=== PATIENT | female | born 1990 | race Two or more races ===

== ENCOUNTER 2018-10-15 18:23 | Outpatient (CLI) | payer OTHER ==
[2018-10-15 19:06] LABS: ADD MAN DIFF? NO
[2018-10-15 19:09] LABS: BASOPHILS % 0.3 % (0.0-2.0); EOSINOPHILS % 0.5 % (0.0-7.0); HEMOGLOBIN 10.4 g/dl (12.0-16.0); LYMPHOCYTES # 1.5 10^3/ul (0.8-2.9); LYMPHOCYTES % 18.9 % (15.0-51.0); MEAN CORPUSCULAR HEMOGLOBIN 31.3 pg (29.0-33.0); MEAN CORPUSCULAR HGB CONC 33.5 g/dl (32.0-37.0); MEAN CORPUSCULAR VOLUME 93.4 fl (82.0-101.0); MEAN PLATELET VOLUME 12.7 fl (7.4-10.4); MONOCYTE # 0.6 10^3/ul (0.3-0.9); MONOCYTES % 6.9 % (0.0-11.0); NEUTROPHIL # 5.8 10^3/ul (1.6-7.5); NEUTROPHILS % 72.9 % (39.0-77.0); PLATELET COUNT 174 10^3/UL (140-415); RED BLOOD COUNT 3.32 10^6/ul (4.20-5.40); RED CELL DISTRIBUTION WIDTH 15.4 % (11.5-14.5)
[2018-10-15 19:11] LABS: ADD UMIC NO; UR ASCORBIC ACID NEGATIVE (NEGATIVE); UR BILIRUBIN (Dip) NEGATIVE (NEGATIVE); UR BLOOD (Dip) NEGATIVE (NEGATIVE); UR CLARITY CLEAR (CLEAR); UR COLOR YELLOW (YELLOW); UR GLUCOSE (Dip) NEGATIVE (NEGATIVE); UR KETONES (Dip) NEGATIVE (NEGATIVE); UR LEUKOCYTE ESTERASE (Dip) NEGATIVE Leu/ul (NEGATIVE); UR NITRITE (Dip) NEGATIVE (NEGATIVE); UR SPECIFIC GRAVITY (Dip) 1.005 (1.003-1.030); UR TOTAL PROTEIN (Dip) NEGATIVE (NEGATIVE); UR UROBILINOGEN (Dip) NEGATIVE (NEGATIVE)
[2018-10-15 19:27] LABS: ALANINE AMINOTRANSFERASE 10 IU/L (13-69); ALBUMIN 3.6 g/dl (3.3-4.9); ALBUMIN/GLOBULIN RATIO 1.02; ALKALINE PHOSPHATASE 172 IU/L (42-121); ANION GAP 12 (5-13); ASPARTATE AMINO TRANSFERASE 21 IU/L (15-46); BILIRUBIN,INDIRECT 0.3 mg/dl (0-1.1); BILIRUBIN,TOTAL 0.3 mg/dl (0.2-1.3); BLOOD UREA NITROGEN 6 mg/dl (7-20); CALCIUM 9.2 mg/dl (8.4-10.2); CARBON DIOXIDE 20 mmol/L (21-31); CHLORIDE 107 mmol/L (97-110); CREATININE 0.59 mg/dl (0.44-1.00); Estimated GFR > 60 mL/min (>60); GLUCOSE 112 mg/dl (70-220); POTASSIUM 4.2 mmol/L (3.5-5.1); SODIUM 139 mmol/L (135-144); TOTAL PROTEIN 7.1 g/dl (6.1-8.1)
[2018-10-15 19:40] LABS: URIC ACID 5.3 mg/dl (3.1-7.9)
== END 2018-10-15 21:24 | disposition home or self-care (01) ==
LOC: OBT 18:23 → L-D 18:24 → OBT 21:24
DX: O26.893 Other specified pregnancy related conditions, third trimester (principal); R10.2 Pelvic and perineal pain; Z3A.32 32 weeks gestation of pregnancy
CPT/HCPCS: 76705; 76818; 80053; 81003; 84560; 85025

== ENCOUNTER 2018-10-27 15:49 | Inpatient (IN) | payer OTHER ==
[2018-10-27 19:31] LABS: ADD UMIC YES; UR ASCORBIC ACID NEGATIVE (NEGATIVE); UR BILIRUBIN (Dip) NEGATIVE (NEGATIVE); UR BLOOD (Dip) NEGATIVE (NEGATIVE); UR CLARITY SLIGHTLY CLOUDY (CLEAR); UR COLOR YELLOW (YELLOW); UR GLUCOSE (Dip) NEGATIVE (NEGATIVE); UR KETONES (Dip) TRACE mg/dL (NEGATIVE); UR LEUKOCYTE ESTERASE (Dip) TRACE Leu/ul (NEGATIVE); UR NITRITE (Dip) NEGATIVE (NEGATIVE); UR RBC 0 /HPF (0-5); UR SPECIFIC GRAVITY (Dip) 1.013 (1.003-1.030); UR SQUAMOUS EPITHELIAL CELL FEW /HPF (FEW); UR TOTAL PROTEIN (Dip) NEGATIVE (NEGATIVE); UR UROBILINOGEN (Dip) NEGATIVE (NEGATIVE); UR WBC 4 /HPF (0-5)
[2018-10-27 19:34] LABS: ADD MAN DIFF? NO
[2018-10-27 19:36] LABS: ABNORMAL IP MESSAGE 1; BASOPHILS % 0.2 % (0.0-2.0); EOSINOPHILS # 0.1 10^3/ul (0.0-0.5); EOSINOPHILS % 0.7 % (0.0-7.0); HEMATOCRIT 30.2 % (37.0-47.0); HEMOGLOBIN 10.2 g/dl (12.0-16.0); LYMPHOCYTES # 1.8 10^3/ul (0.8-2.9); LYMPHOCYTES % 22.3 % (15.0-51.0); MEAN CORPUSCULAR HEMOGLOBIN 32.3 pg (29.0-33.0); MEAN CORPUSCULAR HGB CONC 33.8 g/dl (32.0-37.0); MEAN CORPUSCULAR VOLUME 95.6 fl (82.0-101.0); MEAN PLATELET VOLUME 13.2 fl (7.4-10.4); MONOCYTE # 0.7 10^3/ul (0.3-0.9); MONOCYTES % 8.5 % (0.0-11.0); NEUTROPHIL # 5.4 10^3/ul (1.6-7.5); NEUTROPHILS % 67.8 % (39.0-77.0); PLATELET COUNT 136 10^3/UL (140-415); POSITIVE DIFF @See below; RED BLOOD COUNT 3.16 10^6/ul (4.20-5.40); RED CELL DISTRIBUTION WIDTH 15.5 % (11.5-14.5)
[2018-10-27 19:57] LABS: ALANINE AMINOTRANSFERASE 12 IU/L (13-69); ALBUMIN 3.2 g/dl (3.3-4.9); ALBUMIN/GLOBULIN RATIO 1.06; ALKALINE PHOSPHATASE 181 IU/L (42-121); ANION GAP 11 (5-13); ASPARTATE AMINO TRANSFERASE 22 IU/L (15-46); BILIRUBIN,INDIRECT 0.3 mg/dl (0-1.1); BILIRUBIN,TOTAL 0.3 mg/dl (0.2-1.3); BLOOD UREA NITROGEN 7 mg/dl (7-20); CALCIUM 8.5 mg/dl (8.4-10.2); CARBON DIOXIDE 19 mmol/L (21-31); CHLORIDE 108 mmol/L (97-110); CREATININE 0.55 mg/dl (0.44-1.00); Estimated GFR > 60 mL/min (>60); GLUCOSE 71 mg/dl (70-220); POTASSIUM 4.2 mmol/L (3.5-5.1); SODIUM 138 mmol/L (135-144); TOTAL PROTEIN 6.2 g/dl (6.1-8.1); URIC ACID 5.6 mg/dl (3.1-7.9)
[2018-10-27 20:12] LABS: FREE T4 (FREE THYROXINE) 0.95 ng/dl (0.79-2.35)
[2018-10-27] MEDS: LACTATED RINGER'S 500 ML IV (22:05)
[2018-10-27] MEDS: LACTATED RINGER'S 1,000 ML IV (23:59)
[2018-10-28] MEDS: MAGNESIUM SULFATE 4 GM/100 ML 100 ML IVPB (01:49)
[2018-10-28] MEDS: DEXAMETHASONE 10 MG/ML 1 ML INJ IM (01:53)
[2018-10-28] MEDS: MAGNESIUM SULFATE 20 GM/500 ML 500 ML IV ×2 (02:17→08:30)
[2018-10-28] MEDS: ACETAMINOPHEN 325 MG TAB PO ×2 (02:42→09:23)
[2018-10-28 08:40] LABS: MAGNESIUM 5.3 mg/dl (1.7-2.5)
[2018-10-28] MEDS: LACTATED RINGER'S 1,000 ML IV ×3 (11:23→21:35)
[2018-10-28] MEDS: PRENATAL VITAMIN PO (12:28)
[2018-10-28] MEDS: FERROUS SULFATE (EC) 325 MG TAB PO (12:29)
[2018-10-28 19:16] LABS: TROPONIN-I < 0.012 ng/ml (0.000-0.120)
[2018-10-29 01:26] LABS: TROPONIN-I < 0.012 ng/ml (0.000-0.120)
[2018-10-29] MEDS: LACTATED RINGER'S 1,000 ML IV ×2 (03:59→13:06)
[2018-10-29 08:00] LABS: CHOL/HDL RATIO 3.7 RATIO; HDL CHOLESTEROL 43 mg/dl (34-82); LDL CHOLESTEROL,CALCULATED 60 mg/dl; TRIGLYCERIDES 292 mg/dl (0-149)
[2018-10-29 08:00] LABS: CHOLESTEROL 161 mg/dl (100-200)
[2018-10-29 08:11] LABS: TROPONIN-I < 0.012 ng/ml (0.000-0.120)
[2018-10-29] MEDS: FERROUS SULFATE (EC) 325 MG TAB PO (08:28)
[2018-10-29] MEDS: PRENATAL VITAMIN PO (08:29)
[2018-10-29] MEDS: AL HYDROX/MG HYDROX/SIMETH 30 ML CUP PO (13:06)
== END 2018-10-29 21:15 | disposition home or self-care (01) | DRG 833 ==
LOC: OBT 15:49 → L-D 15:49 → OBT 20:35 → L-D 20:35
DX: O26.893 Other specified pregnancy related conditions, third trimester (principal); O76 Abnormality in fetal heart rate and rhythm complicating labor and delivery; O30.003 Twin pregnancy, unspecified number of placenta and unspecified number of amniotic sacs, third trimester; Z3A.34 34 weeks gestation of pregnancy
CPT/HCPCS: 76818; 80053; 80061; 81001; 83735; 84439; 84443; 84484; 84560; 85025; 93005; 93306

== ENCOUNTER 2018-11-20 09:57 | Inpatient (IN) | payer OTHER ==
[2018-11-20] MEDS ORDERED: CARBOPROST 250 MCG INJ IM ×2 (10:30→18:00)
[2018-11-20] MEDS ORDERED: OXYTOCIN 30 UNITS/LR 500 ML IV ×3 (10:30→18:00)
[2018-11-20] MEDS ORDERED: CEFAZOLIN 2 GM/50 ML (PMX) 50 ML IVPB (10:30)
[2018-11-20] MEDS ORDERED: MISOPROSTOL 200 MCG TAB PR ×2 (10:30→18:00)
[2018-11-20] MEDS ORDERED: METHYLERGONOVINE 0.2 MG INJ IM ×2 (10:30→18:00)
[2018-11-20] MEDS: LACTATED RINGER'S 1,000 ML IV ×3 (10:48→17:40)
[2018-11-20 11:28] LABS: ADD MAN DIFF? NO
[2018-11-20 11:45] LABS: ABNORMAL IP MESSAGE 1; BASOPHILS % 0.4 % (0.0-2.0); EOSINOPHILS # 0.1 10^3/ul (0.0-0.5); EOSINOPHILS % 0.9 % (0.0-7.0); HEMATOCRIT 34.2 % (37.0-47.0); HEMOGLOBIN 11.7 g/dl (12.0-16.0); LYMPHOCYTES % 28.3 % (15.0-51.0); MEAN CORPUSCULAR HGB CONC 34.2 g/dl (32.0-37.0); MEAN CORPUSCULAR VOLUME 93.4 fl (82.0-101.0); MEAN PLATELET VOLUME 13.5 fl (7.4-10.4); MONOCYTE # 0.6 10^3/ul (0.3-0.9); MONOCYTES % 7.8 % (0.0-11.0); NEUTROPHIL # 4.4 10^3/ul (1.6-7.5); NEUTROPHILS % 62.2 % (39.0-77.0); PLATELET COUNT 121 10^3/UL (140-415); RED BLOOD COUNT 3.66 10^6/ul (4.20-5.40); RED CELL DISTRIBUTION WIDTH 14.6 % (11.5-14.5)
[2018-11-20] MEDS: AZITHROMYCIN 500MG/NS (PMX) 250 ML IVPB (11:45)
[2018-11-20 11:54] LABS: POSITIVE DIFF @See below
[2018-11-20 12:04] LABS: INR 0.91; PROTIME 12.4 Sec (11.9-14.9)
[2018-11-20 12:05] LABS: PARTIAL THROMBOPLASTIN TIME 28.2 Sec (23.0-35.0)
[2018-11-20] MEDS: CITRIC ACID/NA CITRATE 30 ML CUP PO (12:08)
[2018-11-20 12:32] LABS: HEPATITIS B SURFACE ANTIGEN NEGATIVE (NEGATIVE)
[2018-11-20] MEDS ORDERED: morphine SULFATE/PF (10 MG/10 ML) INJ (12:42)
[2018-11-20] MEDS ORDERED: ONDANSETRON 4 MG INJ (12:42)
[2018-11-20] MEDS ORDERED: KETOROLAC 30 MG INJ (12:42)
[2018-11-20] MEDS ORDERED: METOCLOPRAMIDE 10 MG INJ (12:42)
[2018-11-20] MEDS ORDERED: EPHEDrine 25 MG/5 ML SYG (13:39)
[2018-11-20] MEDS: OXYTOCIN 30 UNITS/LR 500 ML IV ×2 (14:22→18:53)
[2018-11-20 15:06] LABS: RAPID PLASMA REAGIN NONREACTIVE (NR)
[2018-11-20] MEDS ORDERED: morphine 2 MG INJ IV ×3 (16:30)
[2018-11-20] MEDS ORDERED: NALOXONE (0.4 MG/ML) INJ IV (16:30)
[2018-11-20] MEDS ORDERED: DIPHENHYDRAMINE 50 MG INJ IV (16:30)
[2018-11-20] MEDS ORDERED: ONDANSETRON 4 MG INJ IV ×2 (16:30)
[2018-11-20] MEDS ORDERED: morphine (1 MG/ML) 10ML SYRINGE IV ×3 (16:30)
[2018-11-20] MEDS: KETOROLAC 30 MG INJ IV (17:02)
[2018-11-20] MEDS ORDERED: LANOLIN HPA 1 PKT TOP (18:00)
[2018-11-20] MEDS: SENNA/DOCUSATE NA (8.6MG/50MG) TAB PO (21:00)
[2018-11-21] MEDS: KETOROLAC 30 MG INJ IV ×2 (05:19→11:57)
[2018-11-21 08:23] LABS: ADD MAN DIFF? NO
[2018-11-21 08:33] LABS: ABNORMAL IP MESSAGE 1; BASOPHILS % 0.3 % (0.0-2.0); HEMATOCRIT 28.4 % (37.0-47.0); HEMOGLOBIN 9.7 g/dl (12.0-16.0); LYMPHOCYTES # 1.5 10^3/ul (0.8-2.9); LYMPHOCYTES % 16.7 % (15.0-51.0); MEAN CORPUSCULAR HEMOGLOBIN 31.6 pg (29.0-33.0); MEAN CORPUSCULAR HGB CONC 34.2 g/dl (32.0-37.0); MEAN CORPUSCULAR VOLUME 92.5 fl (82.0-101.0); MEAN PLATELET VOLUME 13.6 fl (7.4-10.4); MONOCYTE # 0.6 10^3/ul (0.3-0.9); MONOCYTES % 6.4 % (0.0-11.0); NEUTROPHIL # 6.7 10^3/ul (1.6-7.5); NEUTROPHILS % 76.3 % (39.0-77.0); PLATELET COUNT 119 10^3/UL (140-415); RED BLOOD COUNT 3.07 10^6/ul (4.20-5.40); RED CELL DISTRIBUTION WIDTH 14.1 % (11.5-14.5)
[2018-11-21 08:33] LABS: WHITE BLOOD COUNT 8.9 10^3/ul (4.8-10.8)
[2018-11-21 08:38] LABS: POSITIVE DIFF @See below
[2018-11-21] MEDS: SENNA/DOCUSATE NA (8.6MG/50MG) TAB PO ×2 (09:08→22:06)
[2018-11-21] MEDS: LACTATED RINGER'S 1,000 ML IV ×3 (11:57→21:30)
[2018-11-21] MEDS: IBUPROFEN 800 MG TAB PO ×2 (14:21→22:06)
[2018-11-21] MEDS: MAGNESIUM HYDROXIDE 30ML CUP PO ×2 (16:54→23:00)
[2018-11-21] MEDS: OXYCODONE/ACETAMINOPHEN (5/325) TAB PO (22:12)
[2018-11-22] MEDS: OXYCODONE/ACETAMINOPHEN (5/325) TAB PO ×3 (03:29→23:47)
[2018-11-22] MEDS: IBUPROFEN 800 MG TAB PO ×3 (05:50→22:13)
[2018-11-22] MEDS: SENNA/DOCUSATE NA (8.6MG/50MG) TAB PO ×2 (10:44→22:12)
[2018-11-22] MEDS: MAGNESIUM HYDROXIDE 30ML CUP PO ×2 (10:44→22:13)
[2018-11-23] MEDS: IBUPROFEN 800 MG TAB PO ×2 (06:07→14:37)
[2018-11-23] MEDS: BISACODYL 10 MG SUPP PR (07:00)
[2018-11-23] MEDS: DIPHTH/TET/ACEL PERTUSS (ADULT) 0.5 ML VIAL IM* (09:00)
[2018-11-23] MEDS: MAGNESIUM HYDROXIDE 30ML CUP PO (10:12)
[2018-11-23] MEDS: SENNA/DOCUSATE NA (8.6MG/50MG) TAB PO (10:12)
== END 2018-11-23 16:40 | disposition home or self-care (01) | DRG 788 ==
LOC: L-D 09:57 → PP1 17:19
PROVIDERS: Obstetrics & Gynecology
PROC: 10D00Z1 Extraction of Products of Conception, Low, Open Approach (ICD-10-PCS; principal; 2018-11-20 12:30)
DX: O32.8XX1 Maternal care for other malpresentation of fetus, fetus 1 (principal); O32.8XX2 Maternal care for other malpresentation of fetus, fetus 2; O30.043 Twin pregnancy, dichorionic/diamniotic, third trimester; Z3A.38 38 weeks gestation of pregnancy; Z37.2 Twins, both liveborn
CPT/HCPCS: 85025; 85610; 85730; 86592; 86850; 86900; 86901; 87340; 88307; 99464